=== PATIENT | female | born 1940 | race Caucasian/White ===

== ENCOUNTER → 2016-08-04 | Outpatient (REF) ==
[~2016-08-04] MED LIST: AMBIEN 10MG10 MG PO; BUFFERED ASPIRIN; BYSTOLIC5 MG PO; COUMADIN 5MG5 MG/TAB PO; DIOVAN HCT 12.51 TA2 PO; DIOVAN80 M1 PO; LEVAQUIN 750MG750 MG PO; LOPRESSOR 550 MG/TAB PO; LYRICA75 MG PO; TRAMADOL50 MG PO; [UNRECOGNIZED DRUG - OTHER] PO
[2016-08-04 16:32] LABS: THYROID STIMULATING HORMONE 2.08 uIU/mL (0.465-4.680)
== END ==
LOC: ZLAB.WCH 14:55
PROVIDERS: Medical Genetics Clinical Genetics (M.D.)
DX: Z01.89 Encounter for other specified special examinations (principal)

== ENCOUNTER → 2016-10-13 | Outpatient (REF) | LOC: ZLAB.WCH 15:12 | DX: Z01.89 Encounter for other specified special examinations (principal) ==

== ENCOUNTER → 2017-04-16 | Outpatient (REF) | LOC: ZLAB.WCH 15:51 | DX: Z01.89 Encounter for other specified special examinations (principal) ==

== ENCOUNTER → 2017-10-21 | Outpatient (REF) ==
[2017-10-21 19:02] LABS: THYROID STIMULATING HORMONE 2.47 uIU/mL (0.465-4.680)
== END ==
LOC: ZLAB.WCH 18:02
DX: Z01.89 Encounter for other specified special examinations (principal)

== ENCOUNTER → 2018-04-22 | Outpatient (REF) | LOC: ZLAB.WCH 16:15 | DX: Z01.89 Encounter for other specified special examinations (principal) ==

== ENCOUNTER → 2018-11-01 | Outpatient (REF) | LOC: ZLAB.WCH 17:14 | DX: Z01.89 Encounter for other specified special examinations (principal) ==

== ENCOUNTER → 2018-11-29 | Outpatient (REF) ==
[2018-11-29 18:22] LABS: THYROID STIMULATING HORMONE 2.31 uIU/mL (0.465-4.680)
== END ==
LOC: ZLAB.WCH 17:35
PROVIDERS: Family Medicine
DX: Z01.89 Encounter for other specified special examinations (principal)

== ENCOUNTER → 2020-09-11 | Outpatient (CLI) | payer MEDICARE, BC | LOC: ZLAB.WCHCL 18:20 | DX: Z01.89 Encounter for other specified special examinations (principal) ==

== ENCOUNTER → 2020-09-12 | Outpatient (REF) | LOC: ZLAB.WCH 09:36 | DX: Z01.89 Encounter for other specified special examinations (principal) ==

== ENCOUNTER 2022-07-27 04:11 | Inpatient (IN) | payer MEDICARE, BC ==
[2022-07-27] VITALS (7 sets, daily range): BP systolic 104–152; BP diastolic 46–65; PULSE 70–90; TEMP 97.4–98.3
[~2022-07-27] VITALS: Ht 165.1 cm; Wt 100.0 kg
[~2022-07-27 04:11] MED LIST changes: +BYSTOLIC10 MG PO; -BYSTOLIC5 MG PO
[2022-07-27 04:34] LABS: BASO % 0.3 % (0.0-2.0); EOS # 0.2 K/mm3 (0.0-0.7); GRAN % 89.3 % (42.2-75.2); HEMATOCRIT 47.3 % (37.0-47.0); HEMOGLOBIN 15.5 g/dl (12.5-16.0); LYMPH % 6.5 % (20.0-51.0); MEAN CELL VOLUME 95 fl (80.0-100.0); MEAN CORPUSCULAR HEMOGLOBIN 31 pg (27-31); MEAN CORPUSCULAR HGB CONC 33 g/dl (33.0-37.0); MEAN PLATELET VOLUME 11.2 fl (7.4-10.4); MONO # 0.4 K/mm3 (0.1-0.6); MONO % 2.6 % (1.7-9.3); PLATELET COUNT 150 K/mm3 (130-400); REDCELL DISTRIBUTION WIDTH-CV 13.2 % (11.5-14.5)
[2022-07-27 05:07] LABS: INR 1.9 (0.8-3.0); PROTHROMBIN TIME 21.4 SECONDS (9.7-12.8)
[2022-07-27 05:10] LABS: PARTIAL THROMBOPLASTIN TIME 29.9 SECONDS (26.0-37.0)
[2022-07-27 05:18] LABS: ALBUMIN 3.5 gm/dL (3.4-4.8); BILIRUBIN,TOTAL 1.2 mg/dL (0.2-1.2); CALCIUM 9.6 mg/dL (8.4-10.2); CREATININE, serum 0.86 mg/dL (0.57-1.11); POTASSIUM 4.1 mmol/L (3.5-4.5); TOTAL PROTEIN 7.5 gm/dL (6.2-8.1)
[2022-07-27 05:24] LABS: TROPONIN-I 0.028 ng/mL (0.00-0.033)
[2022-07-27] MEDS ORDERED: NAMENDA 10MG TA10 MG PO (09:11)
[2022-07-27] MEDS ORDERED: TAPAZOLE5 MG PO (09:13)
--- NOTE | 2022-07-27 11:22 | NUR ---
Director Of Patient Safety rounds: Director Of Patient Safety visit attempted. Patient was not in room at the time.
--- NOTE | 2022-07-27 14:13 | NUR ---
Warfarin Initial Dosing Pharmacy Note Ordering Provider: David Flynn MD Indication: Atrial fibrillation LABS: INR 1.9 Recommendation: Will give Warfarin 4 mg po qHS tonight. Pharmacy will continue to closely monitor and verify home dose with patient's pharmacy tomorrow.
--- NOTE | 2022-07-27 17:22 | NUR ---
PATIENT IS A NEW ADMISSION FROM THE ED. CURRENTLY ON 2L NC O2 READING 100%. PATIENT IS SORE ALL OVER DUE TO A RECENT FALL. VSS. CAN WALK WITH 1X ASSIST TO THE BEDSIDE COMMODE. PLEASANT, BUT FORGETFUL AND DOES NOT KNOW WHAT MEDICATIONS SHE IS TAKING. NURSING SPOKE WITH PHARMACY WHO PLANS TO CALL THE PATIENTS PHARMACY ABOUT MEDICATIONS, SO THE MED REC CAN BE ALTERED. BED ALARM ON.
--- NOTE | 2022-07-27 20:36 | NUR ---
PATIENT IS AO BUT FORGETFUL.PATIENT REPORTS OF MILD PAIN MEDICATION ADMINISTERED PER MAR.PATIENT TAKES PILLS WHOLE WITH NO TROUBLE.PATIENT IS ON SUPPLEMENTAL OXYGEN.PATIENT DENIES SOB.SAFETY MEASURES IN PLACE.NO OTHER NEEEDS AT THIS TIME.
[2022-07-28 04:01] VITALS: BP 136/56; PULSE 70; TEMP 98.1
--- NOTE | 2022-07-28 04:44 | NUR ---
PATIENT REPORTS OF A HEADACHE MEDICATION ADMINISTERED PER MAR.PATIENT DENIES SOB.SAFETY MEASURES IN PLACE.NO OTHER NEEDS AT THIS TIME.
[2022-07-28 06:19] LABS: MEAN CELL VOLUME 94 fl (80.0-100.0); MEAN CORPUSCULAR HGB CONC 32 g/dl (33.0-37.0); PLATELET COUNT 120 K/mm3 (130-400); RED BLOOD COUNT 3.74 M/mm3 (4.10-5.30); REDCELL DISTRIBUTION WIDTH-CV 13.2 % (11.5-14.5)
[2022-07-28 06:27] LABS: INR 2.7 (0.8-3.0); PROTHROMBIN TIME 30.8 SECONDS (9.7-12.8)
[2022-07-28 06:32] LABS: HEMOGLOBIN 11.4 g/dl (12.5-16.0); MEAN CORPUSCULAR HEMOGLOBIN 30 pg (27-31)
[2022-07-28 06:33] LABS: HEMATOCRIT 35.3 % (37.0-47.0)
[2022-07-28 06:49] LABS: CALCIUM 8.7 mg/dL (8.4-10.2); CREATININE, serum 1.14 mg/dL (0.57-1.11); MAGNESIUM 1.9 mg/dL (1.6-2.6); POTASSIUM 4.5 mmol/L (3.5-4.5)
[2022-07-28 07:02] VITALS: BP 106/48; PULSE 70; TEMP 98.5
[2022-07-28 07:11] LABS: TSH w REFLEX 0.699 uIU/mL (0.350-4.940)
[2022-07-28] MEDS ORDERED: TAPAZOLE5 MG PO (09:21)
[2022-07-28] MEDS ORDERED: DIOVAN 80MG80 MG PO (09:21)
[2022-07-28] MEDS ORDERED: COUMADIN 2MG2 MG/TAB PO ×2 (09:26)
--- NOTE | 2022-07-28 09:48 | NUR ---
SHIFT ASSESSMENT PERFORMED AND MEDS ADMINISTERED. +1 PITTING EDEMA NOTED IN BILATERAL LOWER EXTREMITIES. OTHER VS WNL. NO FURTHER REQUESTS AT THIS TIME.
--- NOTE | 2022-07-28 09:50 | NUR ---
Warfarin Follow-up Pharmacy Note Current regimen: Warfarin 4 mg x1 on 07/27/22 LABS: INR 2.7 <- 1.9 Changes in therapy: Will give decreased dose of Warfarin 2 mg po qHS x1 tonight with jump in INR. Plan to resume home dose of Warfarin 4 mg po MoWeFr and 3 mg po SuTuThSa on 07/29/22 if INR remains stable and therapeutic. Pharmacy will continue to closely monitor.
[2022-07-28 11:08] VITALS: BP 90/50; PULSE 91; TEMP 98.3
--- NOTE | 2022-07-28 14:24 | NUR ---
SW met with patient to complete intake. Patient reports that prior to being admitted to [facility] for SNF she lived at home alone and was fully independent with her ADL's and IADL's but did not drive. She has had home health services in the past, but is unsure of what agency it was with. PCP is and utilizes [facility] for prescriptions. She utilizes a walker to assist with ambulation PRN and has no home oxygen needs. Patient does not have a DPOA-HC established. Her in November of this year and she has no children. Her sister Malia ([phone]) is her next of kin. Discharge plan: Back to [facility]
[2022-07-28 15:17] VITALS: BP 118/50; PULSE 71; TEMP 98.1
--- NOTE | 2022-07-28 19:30 | NUR ---
PT SITTING BEDSIDE IN RECLINER WITH RT AT CHAIRSIDE. PT DENIES NEEDS OR CONCERNS AND STATES SHE WILL USE CALL LIGHT WITH NEEDS.
[2022-07-28 20:08] VITALS: BP 114/50; PULSE 83; TEMP 97.8
[2022-07-29 00:36] VITALS: BP 136/48; PULSE 70; TEMP 98.2
--- NOTE | 2022-07-29 00:44 | NUR ---
2200: Report received on pt by ANDREW Arriaga. Pt in bed. R wrist INT is CDI. Tele on. No needs or concerns verbalized by pt at this time. Call light within reach.
[2022-07-29 04:34] VITALS: BP 125/54; PULSE 70; TEMP 97.8
--- NOTE | 2022-07-29 06:28 | NUR ---
Uneventful night for pt. Ambulated to the bathroom once and reported feeling good. No pain or discomfort reported at this time. Call light within reach.
[2022-07-29 06:32] LABS: BASO % 0.1 % (0.0-2.0); EOS # 0.4 K/mm3 (0.0-0.7); EOS % 4.4 % (0.0-4.0); GRAN # 6.4 K/mm3 (1.4-6.5); GRAN % 67.4 % (42.2-75.2); HEMATOCRIT 37.5 % (37.0-47.0); HEMOGLOBIN 12.2 g/dl (12.5-16.0); LYMPH # 2.1 K/mm3 (1.2-3.4); LYMPH % 21.9 % (20.0-51.0); MEAN CELL VOLUME 96 fl (80.0-100.0); MEAN CORPUSCULAR HEMOGLOBIN 31 pg (27-31); MEAN CORPUSCULAR HGB CONC 33 g/dl (33.0-37.0); MEAN PLATELET VOLUME 10.2 fl (7.4-10.4); MONO # 0.6 K/mm3 (0.1-0.6); MONO % 5.9 % (1.7-9.3); PLATELET COUNT 138 K/mm3 (130-400); RED BLOOD COUNT 3.92 M/mm3 (4.10-5.30); REDCELL DISTRIBUTION WIDTH-CV 13.2 % (11.5-14.5)
[2022-07-29 06:33] LABS: INR 2.5 (0.8-3.0); PROTHROMBIN TIME 29.1 SECONDS (9.7-12.8)
[2022-07-29 06:42] LABS: CALCIUM 9.1 mg/dL (8.4-10.2); CREATININE, serum 0.98 mg/dL (0.57-1.11); POTASSIUM 4.3 mmol/L (3.5-4.5)
[2022-07-29 07:50] VITALS: BP 137/46; PULSE 72; TEMP 97.9
[2022-07-29] MEDS ORDERED: LASIX 40MG TABL40 MG PO (09:21)
--- NOTE | 2022-07-29 10:13 | NUR ---
Pt awake and sitting in chair. Morning medications administered per eMAR. Shift assessment completed. INT in R wrist intact. Telemetry remains on. No further request at this time. Call light within reach.
[2022-07-29] MEDS ORDERED: NYAMYC100000 U/G TP (10:25)
--- NOTE | 2022-07-29 12:48 | NUR ---
INT in R wrist discontinued with catheter tip intact.
--- NOTE | 2022-07-29 13:06 | NUR ---
Pt envelope given to [facility]. Pt escorted out of facility via wheel chair at this time.
--- NOTE | 2022-07-29 13:11 | NUR ---
This IGNITION EXPERT called to give pt report to ANDREW Reyes at [facility]. Phone number left for call back.
--- NOTE | 2022-07-29 13:41 | NUR ---
Report given to ANDREW Reyes. All questions answered.
--- NOTE | 2022-07-29 14:26 | NUR ---
Hospitalist advised patient is ready for discharge today. Janitorial Services Supervisor contacted Priya at [facility] and set discharge time for 1300. SW met with patient to provide transport time and patient is in agreement. SW attempted to contact patient's sister, Malia and left a message. SW faxed emailed clinical updates and discharge orders to Priya at . Discharge Plan: [facility]
== END 2022-07-29 13:06 | DRG 291 ==
LOC: COL.ER 04:11 → MEDICAL 07:26
PROVIDERS: Family Medicine; Physician Assistant; ADMIT Internal Medicine
DX: I11.0 Hypertensive heart disease with heart failure (principal); I50.33 Acute on chronic diastolic (congestive) heart failure; J96.01 Acute respiratory failure with hypoxia; I48.20 Chronic atrial fibrillation, unspecified; E78.5 Hyperlipidemia, unspecified; I25.10 Atherosclerotic heart disease of native coronary artery without angina pectoris; F03.90 Unspecified dementia, unspecified severity, without behavioral disturbance, psychotic disturbance, mood disturbance, and anxiety; J44.9 Chronic obstructive pulmonary disease, unspecified; I08.1 Rheumatic disorders of both mitral and tricuspid valves; M79.7 Fibromyalgia; Z90.710 Acquired absence of both cervix and uterus; Z86.73 Personal history of transient ischemic attack (TIA), and cerebral infarction without residual deficits; Z90.49 Acquired absence of other specified parts of digestive tract; Z88.1 Allergy status to other antibiotic agents; Z91.041 Radiographic dye allergy status; Z91.040 Latex allergy status; Z88.5 Allergy status to narcotic agent; Z88.0 Allergy status to penicillin; Z88.2 Allergy status to sulfonamides; Z88.8 Allergy status to other drugs, medicaments and biological substances; Z91.048 Other nonmedicinal substance allergy status; Z95.0 Presence of cardiac pacemaker; Z79.01 Long term (current) use of anticoagulants; Z23 Encounter for immunization
CPT/HCPCS: A9284; J1940

== ENCOUNTER 2024-02-02 13:16 | Emergency (ER) | payer MEDICARE, BC ==
[~2024-02-02] VITALS: Ht 167.6 cm; Wt 113.6 kg
[~2024-02-02 13:16] MED LIST changes: +COUMADIN 2MG2 MG/TAB PO; +DIOVAN 80MG80 MG PO; +LASIX 40MG TABL40 MG PO; +NAMENDA 10MG TA10 MG PO; +NYAMYC100000 U/G TP; +TAPAZOLE5 MG PO
[2024-02-02 13:20] VITALS: TEMP 98.7
[2024-02-02 13:35] LABS: BASO # 0.1 K/mm3 (0.0-0.2); BASO % 0.7 % (0.0-2.0); EOS # 0.2 K/mm3 (0.0-0.7); EOS % 3.1 % (0.0-4.0); GRAN # 5.4 K/mm3 (1.4-6.5); GRAN % 69.6 % (42.2-75.2); HEMOGLOBIN 13.2 g/dl (12.5-16.0); LYMPH # 1.5 K/mm3 (1.2-3.4); LYMPH % 19.3 % (20.0-51.0); MEAN CELL VOLUME 95 fl (80.0-100.0); MEAN CORPUSCULAR HEMOGLOBIN 30 pg (27-31); MEAN CORPUSCULAR HGB CONC 32 g/dl (33.0-37.0); MEAN PLATELET VOLUME 10.8 fl (7.4-10.4); MONO # 0.5 K/mm3 (0.1-0.6); MONO % 6.9 % (1.7-9.3); PLATELET COUNT 143 K/mm3 (130-400); RED BLOOD COUNT 4.34 M/mm3 (4.10-5.30); REDCELL DISTRIBUTION WIDTH-CV 14.1 % (11.5-14.5)
[2024-02-02 14:25] LABS: INR 3.2 (0.8-3.0); PROTHROMBIN TIME 33.8 SECONDS (9.7-12.8)
[2024-02-02] MEDS ORDERED: NS 1,000 ML IV ONE (14:30)
[2024-02-02 14:39] LABS: ALBUMIN 3.2 g/dL (3.4-4.8); BILIRUBIN,TOTAL 0.6 mg/dL (0.2-1.2); CALCIUM 9.4 mg/dL (8.4-10.2); CREATININE, serum 1.04 mg/dL (0.57-1.11); POTASSIUM 3.8 mEq/L (3.5-4.5); TOTAL PROTEIN 7.4 g/dl (6.2-8.1)
[2024-02-02] MEDS ORDERED: Meclizine 25 MG TAB PO ONE (15:00)
[2024-02-02 15:02] LABS: PH 7.5 (5.0-8.5); URINE APPEARANCE CLEAR (CLEAR/HAZY); URINE BLOOD NEGATIVE (NEGATIVE); URINE COLOR YELLOW (YELLOW); URINE GLUCOSE NEGATIVE (NEGATIVE); URINE KETONE NEGATIVE (NEGATIVE); URINE NITRATE NEGATIVE (NEGATIVE); URINE PROTEIN(semi-quant) NEGATIVE (NEGATIVE)
[2024-02-02 15:13] LABS: TRICYCLIC ANTIDEPRESS URINE NEGATIVE (NEGATIVE)
[2024-02-02 15:37] LABS: COLLECTION METHOD CLEAN CATCH
[2024-02-02 17:10] VITALS: BP 164/66; PULSE 70
== END 2024-02-02 17:10 | disposition home or self-care (01) ==
LOC: COL.ER 13:16
PROVIDERS: Physician Assistant
DX: F03.90 Unspecified dementia, unspecified severity, without behavioral disturbance, psychotic disturbance, mood disturbance, and anxiety (principal); R42 Dizziness and giddiness; Z91.040 Latex allergy status; Z79.01 Long term (current) use of anticoagulants; Z79.899 Other long term (current) drug therapy
CPT/HCPCS: J7030